=== PATIENT | male | born 1985 | race Caucasian/White ===

== ENCOUNTER 2016-11-24 23:16 | Emergency (ER) | payer OTHER ==
[2016-11-24 23:16] VITALS: BP 107/60
--- NOTE | 2016-11-24 23:33 | ED.ADGEN ---
Adult General Chief Complaint Chief Complaint " I fell down"... HPI HPI Patient is a 31 year old male [facility] prisoner who presents with above hx and complaints. Pt. has three lacerations one to Lt scalp 3 cm and another to Lt. eyebrow 1 cm and small superficial laceration Rt eyebrow 1 cm. Pt. denies loss of consciousness. Pt. states his tetanus is up to date. Denies vision changes. Moves all ext. on request. Pt. does have hand cuffs ,, belly chain and black box restraints. Review of Systems Review of Systems Constitutional: Denies fever or chills [] Eyes: Denies change in visual acuity, redness, or eye pain HENT: Denies nasal congestion or sore throat []Lacerations as per HPI- complaint Respiratory: Denies cough or shortness of breath [] Cardiovascular: No additional information not addressed in HPI [] GI: Denies abdominal pain, nausea, vomiting, bloody stools or diarrhea [] : Denies dysuria or hematuria [] Musculoskeletal: Denies back pain or joint pain [] Integument: Denies rash or skin lesions [] Hx.of psoriasis. Complaints of laceration Neurologic: Denies headache, focal weakness or sensory changes [] Endocrine: Denies polyuria or polydipsia [] Family History Family History Non- contributory Current Medications Current Medications Current Medications Medications (Trade) Dose Ordered Sig/Sonny Start Time Stop Time Status Last Admin Dose Admin Bupivacaine HCl (Sensorcaine Mpf 0.5%) 30 ml 1X ONCE 11/25/16 00:15 11/25/16 00:16 DC Lidocaine HCl 50 ml 1X ONCE 11/25/16 00:15 11/25/16 00:16 DC See Nursing for detention labs. Allergies Allergies Allergies Coded Allergies Type Severity Reaction Last Updated Verified No Known Drug Allergies 11/24/16 No NKDA Physical Exam Physical Exam Constitutional: no acute distress, non-toxic appearance. [] HENT: Normocephalic, , bilateral external ears normal, oropharynx moist, no oral exudates, nose epistaxis. Contusions and laceration to face and forehead. Nasal epistaxis with no septal hematoma. Tm.s clear. Eyes: PERRLA, EOMI, conjunctiva normal, no discharge. No double vision reported. No vision changes reported. Neck: Normal range of motion, no tenderness, supple, no stridor. [] Cardiovascular:Heart rate regular rhythm, no murmur [] Lungs & Thorax: Bilateral breath sounds clear to auscultation [] Abdomen: Bowel sounds normal, soft, no tenderness, no masses, no pulsatile masses. [] Skin: Warm, dry, no erythema, no rash. [] Multiple tattoo . Psoriasis. Back: No tenderness, no CVA tenderness. [] Extremities: No tenderness, no cyanosis, no clubbing, ROM intact, no edema. [] Neurologic: Alert and oriented X 3, normal motor function, normal sensory function, no focal deficits noted. [] Psychologic: Affect normal, judgement normal, mood normal. [] Current Patient Data Vital Signs Vital Signs Date Time Temp Pulse Resp B/P (MAP) Pulse Ox O2 Delivery O2 Flow Rate FiO2 11/24/16 23:16 97.9 96 18 94 Room Air EKG EKG [] Radiology/Procedures Radiology/Procedures CT- of head shows[]no fx of dislocation cervical, old orbit inferior fx, with fat. Scalp hematoma at site of laceration. Course & Med Decision Making Course & Med Decision Making Pertinent Labs and Imaging studies reviewed. (See chart for details) Procedure note: Laceration repair. Pt. cleaned with soap and water. Then application of 3 cc mix lidocaine and Sensorcaine. Wounds and abrasions cleaned betadine, then irrigated with Normal saline. Sutures x , four eyebrow Lt., 5. x scalp Lt.. Simple. Used 4-0 prolene. Keep lacerations clean and dry. Polysporin 4 x day. sutures out in 10 days. [] Final Impression Final Impression 1. Lacerations[] 2. Scalp Hematoma 3. Head injury Problems: Dragon Disclaimer Dragon Disclaimer This electronic medical record was generated, in whole or in part, using a voice recognition dictation system. EMELI MARINELLI MD Nov 24, 2016 23:33
[2016-11-25] MEDS ORDERED: BUPIVACAINE MPF 0.5% 30 ML VIAL. SQ ONE (00:15)
[2016-11-25] MEDS ORDERED: LIDOCAINE 1% 50 ML VIAL. IV ONE (00:15)
--- NOTE | 2016-11-25 00:45 | RAD ---
INDICATION: Trauma COMPARISON: None. TECHNIQUE: Axial CT images obtained through the head, face and cervical spine without intravenous contrast. Coronal and sagittal reformats processed of cervical spine. One or more of the following individualized dose reduction techniques were utilized for this examination: 1. Automated exposure control; 2. Adjustment of the mA and/or kV according to patient size; 3. Use of iterative reconstruction technique. FINDINGS: Head: Tiny high density foci interhemispheric region frontally No midline shift. Basal cisterns patents. Ventricles and sulci are within normal limits. No acute osseous abnormality. Orbits and paranasal sinuses unremarkable. Cervical: No definite acute fracture. No significant malalignment. No evidence of perivertebral hematoma. Facial: No definite dislocation. Tiny defect left inferior orbital wall.. There is some nasal bowing to the right. No retro-orbital hematoma. Small mucosal thickening within the frontal sinus with mild fluid in ethmoid air cells. No retro-orbital hematoma. IMPRESSION: There are couple of tiny high density foci within the interhemispheric region frontally. This is a subtle finding and could be artifactual in nature or secondary to calcifications within the anterior cerebral arteries but tiny subarachnoid hemorrhage can also have this appearance. Left frontal scalp cephalohematoma suspected. There is a tiny defect in the inferior wall of the left orbit with a small focus of fat extending through the defect. Could be secondary to an old injury but if there is significant pain in the region a tiny acute inferior orbital wall fracture is possible. No definite acute fracture or dislocation of the cervical spine. Electronically signed by: Hakeem Box MD (11/25/2016 12:42 AM) [id number]
== END 2016-11-25 01:00 | disposition home or self-care (01) ==
LOC: ER 23:16
DX: S00.03XA Contusion of scalp, initial encounter (principal); S01.111A Laceration without foreign body of right eyelid and periocular area, initial encounter; S01.112A Laceration without foreign body of left eyelid and periocular area, initial encounter; W19.XXXA Unspecified fall, initial encounter; Y93.89 Activity, other specified; Y99.8 Other external cause status; Y92.89 Other specified places as the place of occurrence of the external cause
CPT/HCPCS: 12002; 12011; 70450; 70486; 72125; 99284-25